=== PATIENT | male | born 1975 | race Hispanic/Latino ===

== ENCOUNTER 2022-01-27 22:05 | Emergency (ER) | payer MEDICAID ==
[~2022-01-27 22:05] MED LIST: CELEXA20 MG PO; COUMADIN10 MG PO; CYMBALTA30 MG PO; FERROUS SULFAT325 MG PO; GABAPENTIN300 MG PO; KLOR-CON 1010 MEQ PO; LASIX40 MG PO; METOPROLOL SUCC50 MG PO; MVI; NORCO 10-325 T1 EACH PO; RISPERIDONE4 MG PO; SENOKOT8.6 MG PO; TRAZODONE HCL50 MG PO; ZYRTEC10 M1 PO
== END 2022-01-27 22:35 | disposition short-term general hospital (02) ==
LOC: ER 22:10
DX: I10 Essential (primary) hypertension (principal)